=== PATIENT | male | born 1945 | race Caucasian/White ===

== ENCOUNTER 2018-09-24 10:56 | Inpatient (IN) | payer OTHER ==
[~2018-09-24] VITALS: Ht 180.3 cm; Wt 99.3 kg
[2018-09-24 11:08] VITALS: Ht 180.3 cm; Wt 99.3 kg
[2018-09-24 11:56] LABS: BASOPHIL % 0.1 % (0-2); PLATELET COUNT 153 x10^3mcL (130-400); RED CELL DISTRIBUTION WIDTH 14.1 % (11.5-14.5)
[2018-09-24 12:33] LABS: CALCIUM 8.8 mg/dL (8.5-10.1); CHLORIDE SERUM 99 mmol/L (98-107); CREATININE SERUM 1.1 mg/dL (0.7-1.3); GLUCOSE SERUM 124 mg/dL (74-106); POTASSIUM SERUM 4.4 mmol/L (3.5-5.1); SODIUM SERUM 134 mmol/L (136-145)
[2018-09-24 12:38] LABS: ALKALINE PHOSPHATASE 41 U/L (46-116); ALT/SGPT 24 U/L (16-63); AST/SGOT 47 U/L (15-37); BILIRUBIN TOTAL 0.4 mg/dL (0.20-1.00); TOTAL PROTEIN, SERUM 7.7 g/dL (6.4-8.2)
[2018-09-24 12:39] LABS: ALBUMIN 3.2 g/dL (3.4-5.0)
[2018-09-24] MEDS ORDERED: ZYL100 (12:46)
[2018-09-24] MEDS ORDERED: DIOVAN40 MG (12:46)
[2018-09-24] MEDS ORDERED: CARVEDILOL3.125 M1 (12:46)
[2018-09-24] MEDS ORDERED: SIMVASTATIN10 M1 (12:46)
[2018-09-24] MEDS ORDERED: AMLODIPINE BES2.5 M1 (12:46)
[2018-09-24] MEDS ORDERED: GOOD SENSE ASPI81 M3 PO (12:47)
[2018-09-24] MEDS ORDERED: L40I (12:47)
[2018-09-24 14:50] VITALS: BP 170/102
[2018-09-24 15:18] VITALS: BP 170/102
[2018-09-24 16:15] VITALS: BP 126/82
[2018-09-24 20:42] VITALS: BP 159/95
[2018-09-25 05:11] VITALS: BP 105/64
[2018-09-25 07:30] LABS: BASOPHIL % 0.1 % (0-2); PLATELET COUNT 142 x10^3mcL (130-400)
[2018-09-25 07:59] LABS: ALKALINE PHOSPHATASE 37 U/L (46-116); ALT/SGPT 21 U/L (16-63); AST/SGOT 46 U/L (15-37); BILIRUBIN TOTAL 0.47 mg/dL (0.20-1.00); CALCIUM 8.3 mg/dL (8.5-10.1); CARBON DIOXIDE 26.3 mmol/L (21-32); CHLORIDE SERUM 97 mmol/L (98-107); CREATININE SERUM 1.1 mg/dL (0.7-1.3); GLUCOSE SERUM 120 mg/dL (74-106); MAGNESIUM 2.1 mg/dL (1.8-2.4); POTASSIUM SERUM 3.6 mmol/L (3.5-5.1); SODIUM SERUM 133 mmol/L (136-145); TOTAL PROTEIN, SERUM 7.2 g/dL (6.4-8.2)
[2018-09-25 08:00] LABS: ALBUMIN 2.8 g/dL (3.4-5.0)
[2018-09-25 10:09] VITALS: BP 115/76
[2018-09-25 13:12] VITALS: BP 117/76
[2018-09-25 18:16] VITALS: BP 113/71
[2018-09-25 21:42] VITALS: BP 113/76
[2018-09-26 05:39] VITALS: BP 100/62
[2018-09-26 06:31] LABS: BASOPHIL % 0.4 % (0-2); PLATELET COUNT 136 x10^3mcL (130-400); RED CELL DISTRIBUTION WIDTH 13.8 % (11.5-14.5)
[2018-09-26 08:19] LABS: ALKALINE PHOSPHATASE 36 U/L (46-116); ALT/SGPT 21 U/L (16-63); AST/SGOT 44 U/L (15-37); BILIRUBIN TOTAL 0.43 mg/dL (0.20-1.00); CALCIUM 8.5 mg/dL (8.5-10.1); CARBON DIOXIDE 27.5 mmol/L (21-32); CHLORIDE SERUM 97 mmol/L (98-107); CREATININE SERUM 1.4 mg/dL (0.7-1.3); GLUCOSE SERUM 109 mg/dL (74-106); MAGNESIUM 2.3 mg/dL (1.8-2.4); POTASSIUM SERUM 4.3 mmol/L (3.5-5.1); SODIUM SERUM 134 mmol/L (136-145)
[2018-09-26 08:21] LABS: ALBUMIN 2.5 g/dL (3.4-5.0)
[2018-09-26 09:06] VITALS: BP 99/58
[2018-09-26] MEDS ORDERED: TAM75 PO (12:51)
[2018-09-26 13:07] VITALS: BP 121/78
[2018-09-26 14:20] VITALS: BP 121/78
== END 2018-09-26 15:45 | disposition home or self-care (01) | DRG 280 ==
LOC: ED 10:56 → DU 12:54
PROVIDERS: Emergency Medicine; ADMIT Internal Medicine Pulmonary Disease
PROC: 5A09457 Assistance with Respiratory Ventilation, 24-96 Consecutive Hours, Continuous Positive Airway Pressure (ICD-10-PCS; principal; 2018-09-25)
DX: I21.4 Non-ST elevation (NSTEMI) myocardial infarction (principal); I50.41 Acute combined systolic (congestive) and diastolic (congestive) heart failure; I11.0 Hypertensive heart disease with heart failure; E78.00 Pure hypercholesterolemia, unspecified; J11.1 Influenza due to unidentified influenza virus with other respiratory manifestations; Z66 Do not resuscitate; F10.10 Alcohol abuse, uncomplicated; E78.5 Hyperlipidemia, unspecified; E66.01 Morbid (severe) obesity due to excess calories; Z88.2 Allergy status to sulfonamides; Z68.32 Body mass index [BMI] 32.0-32.9, adult
CPT/HCPCS: 83880; 85378; 87804; J0696; J1650; J1940; J7050; J7613; J7620; J7626; J7644; Q0092